=== PATIENT | female | born 1955 | race Caucasian/White ===

== ENCOUNTER 2016-10-11 08:58 | Emergency (ER) | payer MEDICARE, OTHER ==
[2016-10-11 10:30] LABS: HEMOGLOBIN 10.9 gm/dl (12.3-15.3); RED BLOOD COUNT 3.46 M/UL (4.00-5.10); WHITE BLOOD COUNT 7.3 K/UL (4.5-11.0)
[2016-10-11 10:54] LABS: BUN/CREATININE RATIO 10 (0-10)
== END 2016-10-11 13:35 | disposition home or self-care (01) ==
LOC: ER1 08:58
PROVIDERS: Physician Assistant
DX: J44.9 Chronic obstructive pulmonary disease, unspecified (principal); E87.6 Hypokalemia; R10.30 Lower abdominal pain, unspecified; I10 Essential (primary) hypertension; E78.5 Hyperlipidemia, unspecified; F17.200 Nicotine dependence, unspecified, uncomplicated; Z95.1 Presence of aortocoronary bypass graft; Z88.6 Allergy status to analgesic agent; Z79.899 Other long term (current) drug therapy
CPT/HCPCS: 36415; 36600; 71010; 80053; 81001; 82550; 82553; 82803; 83874; 84484; 85025; 87040; 87081; 87880; 93005; 94664; 96374; 96375; 99285; J2270; J2405; J2930; J7050; Q9962

== ENCOUNTER 2016-10-14 03:20 | Observation (INO) | payer MEDICARE, OTHER ==
[~2016-10-14] VITALS: Ht 157.5 cm; Wt 59.9 kg
[2016-10-14 05:20] LABS: HEMOGLOBIN 11.2 gm/dl (12.3-15.3); RED BLOOD COUNT 3.51 M/UL (4.00-5.10); WHITE BLOOD COUNT 8.7 K/UL (4.5-11.0)
[2016-10-14 05:41] LABS: BUN/CREATININE RATIO 16 (0-10)
[2016-10-14] MEDS ORDERED: LIPITOR TAB 2020 MG PO (10:34)
[2016-10-14] MEDS ORDERED: COREG 12.5MG12.5 MG PO (10:34)
[2016-10-14] MEDS ORDERED: ADULT LOW DOSE81 MG PO (10:35)
[2016-10-14] MEDS ORDERED: CEFDINIR300 MG PO (10:36)
[2016-10-14] MEDS ORDERED: FISH OIL 10001000 MG PO (10:36)
[2016-10-14] MEDS ORDERED: PLAVIX 75 MG TA75 MG PO (10:37)
[2016-10-14] MEDS ORDERED: COMBIVENT0.074 GM/I INH (10:37)
[2016-10-14] MEDS ORDERED: DICYCLOMINE HCL20 MG PO (10:39)
[2016-10-14] MEDS ORDERED: SYNTHROID75 MCG PO (10:39)
[2016-10-14] MEDS ORDERED: OMEPRAZOLE40 MG PO (10:39)
[2016-10-14] MEDS ORDERED: POTASSIUM CHLO10 MEQ PO (10:40)
[2016-10-14] MEDS ORDERED: PRAVACHOL40 MG PO (10:40)
[2016-10-14] MEDS ORDERED: PREDNISONE 20 M20 MG PO (10:41)
[2016-10-14] MEDS ORDERED: NEURONTIN 300300 MG PO (10:42)
== END 2016-10-14 06:45 | disposition home or self-care (01) ==
LOC: ER1 03:20 → ZEROF 03:21 → ER1 06:45 → ZEROF 06:45
PROVIDERS: Student in an Organized Health Care Education/Training Program; ADMIT Internal Medicine
DX: I11.0 Hypertensive heart disease with heart failure (principal); I50.9 Heart failure, unspecified; I25.810 Atherosclerosis of coronary artery bypass graft(s) without angina pectoris; J44.9 Chronic obstructive pulmonary disease, unspecified; F17.210 Nicotine dependence, cigarettes, uncomplicated; Z95.1 Presence of aortocoronary bypass graft; Z95.5 Presence of coronary angioplasty implant and graft; Z88.6 Allergy status to analgesic agent; Z79.02 Long term (current) use of antithrombotics/antiplatelets
CPT/HCPCS: 36415; 36600; 71020; 80053; 81001; 82550; 82553; 82803; 83605; 83874; 83880; 84484; 85025; 87040; 87081; 87086; 87880; 93005; 94640; 96374; 99285; G0378; J1940

== ENCOUNTER 2016-11-02 20:03 | Emergency (ER) | payer MEDICARE, OTHER ==
[~2016-11-02 20:03] MED LIST: ADULT LOW DOSE81 MG PO; CEFDINIR300 MG PO; COMBIVENT0.074 GM/I INH; COREG 12.5MG12.5 MG PO; DICYCLOMINE HCL20 MG PO; FISH OIL 10001000 MG PO; LIPITOR TAB 2020 MG PO; NEURONTIN 300300 MG PO; OMEPRAZOLE40 MG PO; PLAVIX 75 MG TA75 MG PO; POTASSIUM CHLO10 MEQ PO; PRAVACHOL40 MG PO; PREDNISONE 20 M20 MG PO; SYNTHROID75 MCG PO
[2016-11-03 04:16] LABS: HEMOGLOBIN 10.9 gm/dl (12.3-15.3); RED BLOOD COUNT 3.45 M/UL (4.00-5.10); WHITE BLOOD COUNT 7.4 K/UL (4.5-11.0)
[2016-11-03 04:40] LABS: BUN/CREATININE RATIO 25 (0-10)
== END 2016-11-03 07:35 | disposition home or self-care (01) ==
LOC: ER1 20:03
PROVIDERS: Family Medicine
DX: R11.2 Nausea with vomiting, unspecified (principal); R19.7 Diarrhea, unspecified; M79.1 Myalgia; F17.200 Nicotine dependence, unspecified, uncomplicated; Z88.6 Allergy status to analgesic agent; Z95.1 Presence of aortocoronary bypass graft; Z79.02 Long term (current) use of antithrombotics/antiplatelets; Z79.899 Other long term (current) drug therapy
CPT/HCPCS: 36415; 71010; 80053; 81001; 82550; 82553; 83690; 83874; 83880; 84484; 85025; 93005; 94664; 96361; 96374; 99284; J2405

== ENCOUNTER → 2021-10-07 | Outpatient (CLI) | payer MEDICARE, OTHER | LOC: HEART 5 11:04 | DX: J44.9 Chronic obstructive pulmonary disease, unspecified (principal) | CPT/HCPCS: 94060; 94729 ==

== ENCOUNTER → 2021-12-02 | Outpatient (CLI) | payer MEDICARE, OTHER ==
[~2021-12-02] MED LIST changes: +AMITRIPTYLINE H25 MG PO; +ANORO ELLIPTA1 EACH INH; +FLONASE ALLER15.8 ML; +HYDROCODON-ACE1 EAC2 PO; +IPRAT-ALBUT 0.5-3 ML INH; +LASIX20 MG PO; +LIDOCAINE1 EAC1 EXT; +LISINOPRIL2.5 MG PO; +NEURONTIN800 MG PO; +NICODERM CQ1 EAC1 TD; +SYMBICORT 80-41 INHA INH; +ZETIA10 MG PO
[2021-12-02 10:43] LABS: HEMOGLOBIN 12.8 gm/dl (12.3-15.3); RED BLOOD COUNT 3.86 M/UL (4.00-5.10); WHITE BLOOD COUNT 8.2 K/UL (4.5-11.0)
[2021-12-02 10:59] LABS: BUN/CREATININE RATIO 12 (0-10)
== END ==
LOC: OPSV2 11-26 08:00 → EDSTATUS 09:00 → OPSV2 09:00
PROVIDERS: Orthopaedic Surgery
DX: Z01.818 Encounter for other preprocedural examination (principal); M87.9 Osteonecrosis, unspecified
CPT/HCPCS: 36415; 71046; 80048; 82040; 84155; 85025; 85610; 85730; 93005

== ENCOUNTER → 2021-12-09 | Outpatient (CLI) | payer MEDICARE, OTHER ==
[~2021-12-09] MED LIST changes: +ASPERCREME LID1 EACH TOP; -COREG 12.5MG12.5 MG PO; +COREG3.125 MG PO; +CYCLOBENZAPRINE10 MG PO; +ELIQUIS2.5 MG PO; +ENDOCET 10-3251 EACH PO; +HYDROCODONE-AC1 EAC1 PO; -LIDOCAINE1 EAC1 EXT; +LIDOCAINE1 EAC1 TOP; -LIPITOR TAB 2020 MG PO; +LIPITOR80 MG PO; +SPIRONOLACTONE25 MG PO; +SYNTHROID50 MCG PO; -SYNTHROID75 MCG PO; +ZOFRAN 4 MG TAB4 MG PO
== END ==
LOC: LAB 12:03
PROVIDERS: Orthopaedic Surgery
DX: Z01.812 Encounter for preprocedural laboratory examination (principal)
CPT/HCPCS: 36415; 80048; 86850; 86900; 86901

== ENCOUNTER 2021-12-10 08:58 | Day surgery (SDC) | payer MEDICARE, OTHER ==
[~2021-12-10] VITALS: Ht 157.5 cm; Wt 49.4 kg
[~2021-12-10 08:58] MED LIST changes: -ASPERCREME LID1 EACH TOP; -CYCLOBENZAPRINE10 MG PO; -ELIQUIS2.5 MG PO; -ENDOCET 10-3251 EACH PO; -HYDROCODON-ACE1 EAC2 PO; -HYDROCODONE-AC1 EAC1 PO; -SPIRONOLACTONE25 MG PO; -ZOFRAN 4 MG TAB4 MG PO
[2021-12-10] MEDS ORDERED: HYDROCODON-ACE1 EAC2 PO (11:36)
[2021-12-10] MEDS ORDERED: ZOFRAN 4 MG TAB4 MG PO (14:06)
[2021-12-10] MEDS ORDERED: CYCLOBENZAPRINE10 MG PO (14:06)
[2021-12-10] MEDS ORDERED: ELIQUIS2.5 MG PO (14:06)
[2021-12-10] MEDS ORDERED: ENDOCET 10-3251 EACH PO (14:06)
[2021-12-10] MEDS ORDERED: SPIRONOLACTONE25 MG PO ×2 (18:37→19:21)
[2021-12-10] MEDS ORDERED: ASPERCREME LID1 EACH TOP (19:19)
[2021-12-10] MEDS ORDERED: HYDROCODONE-AC1 EAC1 PO (19:20)
[2021-12-11 03:32] LABS: HEMOGLOBIN 9.1 gm/dl (12.3-15.3); RED BLOOD COUNT 2.75 M/UL (4.00-5.10); WHITE BLOOD COUNT 11.6 K/UL (4.5-11.0)
[2021-12-11 04:26] LABS: BUN/CREATININE RATIO 19 (0-10)
== END 2021-12-11 16:47 | disposition home health service (06) ==
LOC: OR 08:58 → M/S 08:58 → OR 13:30 → M/S 17:44 → OR 12-11 16:47
PROVIDERS: Orthopaedic Surgery
DX: M87.2 Osteonecrosis due to previous trauma (principal); M16.12 Unilateral primary osteoarthritis, left hip; I11.0 Hypertensive heart disease with heart failure; I50.22 Chronic systolic (congestive) heart failure; I25.10 Atherosclerotic heart disease of native coronary artery without angina pectoris; E78.5 Hyperlipidemia, unspecified; E03.9 Hypothyroidism, unspecified; G89.18 Other acute postprocedural pain; F17.210 Nicotine dependence, cigarettes, uncomplicated; I73.9 Peripheral vascular disease, unspecified; J44.9 Chronic obstructive pulmonary disease, unspecified; K21.9 Gastro-esophageal reflux disease without esophagitis; Z95.1 Presence of aortocoronary bypass graft; Z95.5 Presence of coronary angioplasty implant and graft; Z79.02 Long term (current) use of antithrombotics/antiplatelets; Z79.82 Long term (current) use of aspirin; Z79.899 Other long term (current) drug therapy; Z88.5 Allergy status to narcotic agent; Z88.8 Allergy status to other drugs, medicaments and biological substances
CPT/HCPCS: 36415; 73501; 73502; 76000; 80048; 85027; 94640; 94664; 94760; 97116; 97161; 97166; 97535; C1713; C1776; J0690; J1100; J1170; J1644; J2001; J2250; J2270; J2370; J2405; J2704; J2710; J2795; J3010; J3370; J7030; J7050; J7120

== ENCOUNTER → 2022-02-14 | Outpatient (CLI) | payer MEDICARE, OTHER ==
[~2022-02-14] MED LIST changes: +ASPERCREME LID1 EACH TOP; +CYCLOBENZAPRINE10 MG PO; +ELIQUIS2.5 MG PO; +ENDOCET 10-3251 EACH PO; +HYDROCODON-ACE1 EAC2 PO; +HYDROCODONE-AC1 EAC1 PO; +SPIRONOLACTONE25 MG PO; +ZOFRAN 4 MG TAB4 MG PO
== END ==
LOC: KOH-I 02-06 13:00
DX: F17.210 Nicotine dependence, cigarettes, uncomplicated (principal)
CPT/HCPCS: 71271